=== PATIENT | male | born 1995 | race Caucasian/White ===

== ENCOUNTER 2020-08-24 05:35 | Emergency (ER) | payer OTHER ==
[~2020-08-24] VITALS: Ht 177.8 cm; Wt 63.5 kg
[2020-08-24 05:35] VITALS: BP 121/70
== END 2020-08-24 05:48 ==
LOC: ER 05:38
DX: F41.9 Anxiety disorder, unspecified (principal); J45.909 Unspecified asthma, uncomplicated